=== PATIENT | male | born 1995 | race African-American/Black ===

== ENCOUNTER 2017-07-09 14:20 | Emergency (ER) | payer OTHER ==
[2017-07-09] MEDS ORDERED: KETOROLAC 30 MG/ML INJ. IV ONE (15:00)
[2017-07-09] MEDS ORDERED: ONDANSETRON PF 4 MG/2 ML VIAL. IV ONE (16:00)
[2017-07-09 16:51] VITALS: BP 157/90
[2017-07-09] MEDS ORDERED: PROPOFOL 20 ML IV ONE (17:00)
--- NOTE | 2017-07-09 17:41 | PHYS DOC ---
Past Medical History Past Medical History: No Pertinent History Past Surgical History: No Surgical History Alcohol Use: Occasionally Drug Use: None Adult General Chief Complaint Chief Complaint: DENTAL PROBLEM HPI HPI Patient is a 22 year old male who presents to the ED with a jaw dislocation. Patient states he was eating a hot dog at the [employer] game. Patient states this happened to him once before and he had to go to the ER and had to get sedated to be reduced. Patient states he recently had sedation to get his wisdom teeth pulled. He is in good general health. Review of Systems Review of Systems Constitutional: Denies fever or chills [] Respiratory: Denies shortness of breath [] Current Medications Current Medications Current Medications Medications (Trade) Dose Ordered Sig/Chas Start Time Stop Time Status Last Admin Dose Admin Ketorolac Tromethamine (Toradol) 30 mg 1X ONCE 07/09/17 15:00 07/09/17 15:01 DC 07/09/17 15:00 30 MG Ondansetron HCl (Zofran) 4 mg 1X ONCE 07/09/17 16:00 07/09/17 16:01 DC 07/09/17 15:48 4 MG Propofol 20 ml @ 0 mls/hr 1X ONCE 07/09/17 17:00 07/09/17 17:01 DC 07/09/17 17:05 0 MLS/HR Allergies Allergies Allergies Coded Allergies Type Severity Reaction Last Updated Verified No Known Drug Allergies 07/09/17 No Physical Exam Physical Exam Constitutional: Well developed, well nourished, no acute distress, non-toxic appearance. Obvious mandibular dislocation. Alert, mentating normally. HENT: Normocephalic, atraumatic, bilateral external ears normal, oropharynx moist, no oral exudates, nose normal. No evidence of intraoral trauma. No acute dental problems. Eyes: conjunctiva normal, no discharge. [] Neck: Normal range of motion, no stridor. [] Cardiovascular:Heart rate regular rhythm, no murmur [] Lungs & Thorax: Bilateral breath sounds clear to auscultation [] Skin: Warm, dry, no erythema, no rash. [] Extremities: No tenderness, no cyanosis, no clubbing, ROM intact, no edema. [] Neurologic: Alert and oriented X 3, normal motor function, normal sensory function, no focal deficits noted. [] Current Patient Data Vital Signs Vital Signs Date Time Temp Pulse Resp B/P (MAP) Pulse Ox O2 Delivery O2 Flow Rate FiO2 07/09/17 16:51 98.0 52 18 100 07/09/17 14:26 169/90 (116) Room Air EKG EKG [] Radiology/Procedures Radiology/Procedures Procedure note Reduction of TMJ dislocation by me Risks and benefits of procedural sedation were discussed with the patient by myself and Dr. Meadows. Dr. Meadows managed the procedural sedation and airway during the procedure. The patient was sedated with propofol. Using gloved thumbs, downward traction on the patient's mandible was applied and the dislocation was reduced easily without significant force. After reduction and after sedation began to wear off, the patient was able to talk and able to close his mouth normally. Ice packs were applied with a wrap to prevent opening of his mouth.[] Course & Med Decision Making Course & Med Decision Making Pertinent Labs and Imaging studies reviewed. (See chart for details) 22-year-old male presents with jaw dislocation, he has had this once in the past. Initially, the patient was given IV Toradol and ice packs were placed on the TMJ bilaterally. First reduction attempt was done and was unsuccessful. He was sedated with propofol for second reduction attempt which was successful. See procedure note. Patient was discharged in improved condition with ice packs in place and a wrap around the jaw. [] Dragon Disclaimer Dragon Disclaimer This electronic medical record was generated, in whole or in part, using a voice recognition dictation system. Departure Departure Impression: Primary Impression: TMJ (dislocation of temporomandibular joint) Disposition: 01 HOME, SELF-CARE Condition: IMPROVED Referrals: UNKNOWN PCP NAME (PCP) Patient Instructions: Jaw Dislocation, [id number] Additional Instructions: Ice 15-20 minutes out of every 1-2 hours for the next 2 or 3 days to help with pain, swelling, and inflammation. Avoid opening your mouth all the way. Iburofen 800 mg every 6-8 hours as needed for pain. Call your dentist or oral surgeon and ask for a referral to see someone about treatment of this to prevent it from happening in the future. ROLDAN RUCKER MD Jul 09, 2017 17:41
== END 2017-07-09 18:23 | disposition home or self-care (01) ==
LOC: ER 14:20
DX: S03.00XA Dislocation of jaw, unspecified side, initial encounter (principal); X58.XXXA Exposure to other specified factors, initial encounter; Y93.89 Activity, other specified; Y92.89 Other specified places as the place of occurrence of the external cause; Y99.8 Other external cause status
CPT/HCPCS: 21480; 96374; 96375; 99285; J1885; J2405; J2704; 99152; 99284-25